=== PATIENT | female | born 1945 | race Caucasian/White ===

== ENCOUNTER 2017-05-18 01:37 | Emergency (ER) | payer MEDICARE, OTHER ==
[2017-05-18] MEDS ORDERED: NALOXONE HCL INJ 0.4 MG/ML VIAL IV ONE ×2 (01:53→03:03)
[2017-05-18] MEDS ORDERED: MAGNESIUM CITRATE 300 ML BTTL PO ONE (01:53)
[2017-05-18 05:18] VITALS: BP 157/76; TEMP 98.5; O2SAT 96
[2017-05-18] MEDS ORDERED: SODIUM PHOS/BIPHOS ENEMA ADULT 133 ML BTTL PR ONE (05:21)
--- NOTE | 2017-05-18 06:18 | ED.PDOC ---
History of Present Illness - General Chief Complaint: Abdominal Pain Stated Complaint: Constipation and Hemorrhoids Time Seen by Provider: 05/18/17 06:08 Source: patient Exam Limitations: no limitations - History of Present Illness Initial Comments: Patient presents with constipation for one week. She has mild abdominal fullness. She is taking narcotics for a foot surgery she had over a week ago. She has not had this problem before. She does have hemorrhoids which has made her attempts at having a bowel movement more difficult. No N/V. Good appetite. No other complaints. Timing/Duration: 1 week Severity: moderate Improving Factors: nothing Worsening Factors: nothing Associated Symptoms: denies symptoms Allergies/Adverse Reactions: Allergies Morphine Allergy (Verified 07/31/15 11:22) Sulfa Antibiotics Allergy (Verified 07/31/15 11:22) Home Medications: Ambulatory Orders Albuterol Sulfate Nebs [Proventil Nebs] 2.5 mg INH PRN 07/31/15 Amlodipine Besylate [Norvasc] 2.5 mg PO DAILY 07/31/15 Ascorbic Acid [Vitamin C] 500 mg PO DAILY 07/31/15 Aspirin [Coated Aspirin] 325 mg PO DAILY 07/31/15 Calcium Citrate-Vitamin D [Calcium Citrate + D 315-200 mg-Unit] 1 tab PO BID 02/09 Ferrous Sulfate [Fe Tabs] 325 mg PO BID 07/31/15 Fluticasone Propionate Hfa [Flovent Hfa] 220 mcg IN TID 07/31/15 Fluticasone Propionate [Cutivate] 2 spray EX DAILY 07/31/15 Fluticasone/Salmeterol 250/50 [Advair Diskus] 1 puff INH BID 07/31/15 HYDROcodone 7.5MG/APAP 325MG [[place] 7.5/325] 1 tab PO Q4-6H PRN 07/31/15 Levalbuterol Tartrate [Xopenex Hfa] 45 mcg IN Q6H 07/31/15 Losartan Potassium & Hydrochlo [Losartan Potassium/Hydroc 100-25 mg] 1 tab PO DAILY 07/31/15 Methocarbamol [Robaxin] 500 mg PO Q8H 07/31/15 Montelukast [Singulair] 10 mg PO DAILY 07/31/15 Multiple Vitamins W/ Minerals [Womens 50+ Multi Vitamin] 1 tab PO DAILY Simvastatin [Zocor] 20 mg PO DAILY 07/31/15 Tiotropium [place] Monohydrate [Spiriva Handihaler] 1 puff IN DAILY 07/31/15 Tramadol HCl [Ultram] 50 mg PO DAILY 07/31/15 Docusate Sodium 100 mg PO BID #30 cap 05/18/17 Polyethylene Glycol 3350 [Miralax] 17 gm PO QDAC #20 pckt 05/18/17 Review of Systems - Review of Systems Constitutional: States: no symptoms reported EENTM: States: no symptoms reported Respiratory: States: no symptoms reported Cardiology: States: no symptoms reported Gastrointestinal/Abdominal: States: see HPI Genitourinary: States: no symptoms reported Musculoskeletal: States: no symptoms reported Skin: States: no symptoms reported Neurological: States: no symptoms reported Endocrine: States: no symptoms reported Hematologic/Lymphatic: States: no symptoms reported Past Medical History (General) - Patient Medical History Hx Congestive Heart Failure: No Hx Diabetes: No - Social History Hx Tobacco Use: No Hx Alcohol Use: No Hx Substance Use: No Hx Substance Use Treatment: No Hx Depression: No Family Medical History - Family History Mother Family History: Unknown Physical Exam - Physical Exam General Appearance: Alert Respiratory: lungs clear Cardiovascular/Chest: regular rate, rhythm Gastrointestinal/Abdominal: normal bowel sounds, non tender, soft Skin Exam: normal color Progress - Progress Progress: 05/18/17 06:19 Magnesium citrate tried along with two amps of oral Narcan. A minimal amount of stool was removed digitally. She did not have a full bm. She also recieved a fleet enema with a small amount removed digitally. She was given an RX for docusate and miralax and orders to follow up with her pcp this morning. Departure - Departure Clinical Impression: Constipation Disposition: Discharge to Home or Self Care Condition: Good Departure Forms: ED Discharge - Pt. Copy, Patient Portal Self Enrollment Instructions: DI for Abdominal Pain-Adult Diet: other - liquid and soft diet Activity: increase activity as tolerated Referrals: Remi Olvera MD [Primary Care Provider] - 1-2 Weeks Prescriptions: Docusate Sodium 100 mg PO BID #30 cap Polyethylene Glycol 3350 [Miralax] 17 gm PO QDAC #20 pckt Home Medications: Ambulatory Orders Albuterol Sulfate Nebs [Proventil Nebs] 2.5 mg INH PRN 07/31/15 Amlodipine Besylate [Norvasc] 2.5 mg PO DAILY 07/31/15 Ascorbic Acid [Vitamin C] 500 mg PO DAILY 07/31/15 Aspirin [Coated Aspirin] 325 mg PO DAILY 07/31/15 Calcium Citrate-Vitamin D [Calcium Citrate + D 315-200 mg-Unit] 1 tab PO BID 02/09 Ferrous Sulfate [Fe Tabs] 325 mg PO BID 07/31/15 Fluticasone Propionate Hfa [Flovent Hfa] 220 mcg IN TID 07/31/15 Fluticasone Propionate [Cutivate] 2 spray EX DAILY 07/31/15 Fluticasone/Salmeterol 250/50 [Advair Diskus] 1 puff INH BID 07/31/15 HYDROcodone 7.5MG/APAP 325MG [[place] 7.5/325] 1 tab PO Q4-6H PRN 07/31/15 Levalbuterol Tartrate [Xopenex Hfa] 45 mcg IN Q6H 07/31/15 Losartan Potassium & Hydrochlo [Losartan Potassium/Hydroc 100-25 mg] 1 tab PO DAILY 07/31/15 Methocarbamol [Robaxin] 500 mg PO Q8H 07/31/15 Montelukast [Singulair] 10 mg PO DAILY 07/31/15 Multiple Vitamins W/ Minerals [Womens 50+ Multi Vitamin] 1 tab PO DAILY Simvastatin [Zocor] 20 mg PO DAILY 07/31/15 Tiotropium [place] Monohydrate [Spiriva Handihaler] 1 puff IN DAILY 07/31/15 Tramadol HCl [Ultram] 50 mg PO DAILY 07/31/15 Docusate Sodium 100 mg PO BID #30 cap 05/18/17 Polyethylene Glycol 3350 [Miralax] 17 gm PO QDAC #20 pckt 05/18/17 Additional Instructions: Take medications as prescribed. Follow up with your primary doctor this morning for further instruction or referral.
== END 2017-05-18 06:48 | disposition home or self-care (01) ==
LOC: ER 01:37
DX: K59.00 Constipation, unspecified (principal); Z88.6 Allergy status to analgesic agent; Z88.2 Allergy status to sulfonamides; Z79.82 Long term (current) use of aspirin
CPT/HCPCS: J2310 ×2

== ENCOUNTER → 2017-09-08 | Outpatient (CLI) | payer OTHER ==
--- NOTE | 2017-09-09 13:38 | MAM ---
EXAM DESCRIPTION: Screening Mammogram,Bilateral: Digital mammography. CLINICAL HISTORY: 72 years Female SCREENING . No complaints. Mother with breast cancer. Postmenopausal. (Hysterectomy). HRT five or more years ago.. COMPARISON: 2-D digital screening studies bilateral 07/19/2016 and 07/17/2015.. Report from prior examination also reviewed. TECHNIQUE: Bilateral CC and MLO projection full-field images, 2-D digital screening mammographic technique. CAD was utilized. FINDINGS: The breast parenchymal density pattern is: Heterogeneously dense breast tissue, which may obscure small masses. No skin thickening or nipple retraction bilateral vascular calcifications. Bilateral intramammary lymph nodes. No focal, stellate mass or density, focal asymmetry , and no suspicious microcalcifications bilaterally. Stable mammograms compared to the prior study, taking into account differences in mammographic technique. IMPRESSION: BI-RADS CATEGORY: 2 - BENIGN FINDINGS. FOLLOW UP: Routine digital bilateral screening, one year interval from August 2017. Written communication explaining the IMPRESSION and follow-up, will be mailed to the patient and referring health care provider. According to the [employer], yearly mammograms are recommended starting at age 40 and continuing as long as a woman is in good health. Any breast change noted on a breast self-exam should be reported promptly to the patient's healthcare provider. Breast MRI is recommended for women with an approximately 20-25% or greater lifetime risk of breast cancer, including women with a strong family history of breast or ovarian cancer and women who have been treated for Hodgkin's disease. A negative mammographic report should not delay tissue diagnosis in patients with significant clinical history or physical findings. Extremely dense breast tissue limits the sensitivity of digital mammography. Electronically signed by: Andres Diaz MD 09/09/2017 1:37 PM CDT
== END ==
LOC: MAMMO 13:36
PROVIDERS: ATTEND Obstetrics & Gynecology
DX: Z12.31 Encounter for screening mammogram for malignant neoplasm of breast (principal)

== ENCOUNTER → 2018-09-21 | Outpatient (CLI) | payer OTHER ==
--- NOTE | 2018-09-25 08:57 | MAM ---
EXAM DESCRIPTION: 3D Screening BILATERAL : Digital Mammography. CLINICAL HISTORY: 73 years Female SCREEN . No complaints or personal history of breast cancer. Mother and remote family history with breast cancer. Childbirth. Postmenopausal 24 years. HRT 5 or more years ago. Lifetime risk of developing breast cancer (Tyrer-Cuzick model)(%): 7.7. COMPARISON: 2-D digital screening bilateral mammography 09/08/2017. No prior reports available. TECHNIQUE: Bilateral CC and MLO projection full-field images, Digital tomosynthesis mammographic technique. Bilateral digital 2-D full-field MLO images. CAD not utilized. FINDINGS: The breast parenchymal density pattern is: Heterogeneously dense breast tissue, which may obscure small masses. No skin thickening or nipple retraction. Bilateral solitary microcalcifications. Bilateral coarse and vascular calcifications. Stable radiolucent region in the lateral superior left breast anterior third is most likely mostly fatty tissue or lipomas. No new focal, stellate mass or density, focal asymmetry , and no suspicious microcalcifications bilaterally. Stable mammograms compared to prior study. Taking into account, differences in mammographic technique. IMPRESSION: Benign exam. BIRAD CATEGORY: 2 BENIGN FINDINGS. RECOMMENDATIONS: FOLLOW UP: Return to routine digital bilateral screening, one year interval from August 2018 Written communication explaining the IMPRESSION and follow-up, will be mailed to the patient and referring health care provider. According to the [employer], yearly mammograms are recommended starting at age 40 and continuing as long as a woman is in good health. Any breast change noted on a breast self-exam should be reported promptly to the patient's healthcare provider. Breast MRI is recommended for women with an approximately 20-25% or greater lifetime risk of breast cancer, including women with a strong family history of breast or ovarian cancer and women who have been treated for Hodgkin's disease. A negative mammographic report should not delay tissue diagnosis in patients with significant clinical history or physical findings. Extremely dense breast tissue limits the sensitivity of digital mammography. Electronically signed by: Andres Diaz MD 09/25/2018 8:55 AM CDT
== END ==
LOC: MAMMO 13:30
PROVIDERS: ATTEND Obstetrics & Gynecology
DX: Z12.31 Encounter for screening mammogram for malignant neoplasm of breast (principal)

== ENCOUNTER → 2019-10-18 | Outpatient (CLI) | payer OTHER ==
--- NOTE | 2019-10-22 11:43 | MAM ---
EXAM DESCRIPTION: 3D Screening BILATERAL : Digital Mammography. CLINICAL HISTORY: 74 years Female ANNUAL SCREENING . No complaints. No personal history of breast cancer. Mother with breast cancer at age 65. Remote family history of breast cancer. Menarche age 11. Childbirth age 19. Hysterectomy age 49. Hormone replacement 5 or more years ago. Lifetime risk of developing breast cancer (Tyrer-Cuzick model)(%): 7.2. COMPARISON: Bilateral screening digital breast tomosynthesis 21 September 2018. 2-D digital screening bilateral mammography 08 September 2017.. TECHNIQUE: Bilateral CC and MLO projection full-field images, digital tomosynthesis mammographic technique. Bilateral digital 2-D full-field MLO images. CAD not available for tomosynthesis or 2-D images. FINDINGS: The breast parenchymal density pattern is: Heterogeneously dense breast tissue, which may obscure small masses. No skin thickening or nipple retraction. Bilateral vascular calcifications. Bilateral solitary microcalcifications. No new focal, stellate mass or density, focal asymmetry , and no suspicious microcalcifications bilaterally. Stable mammograms compared to prior study. Taking into account, differences in mammographic technique. IMPRESSION: Benign exam. BIRAD CATEGORY: 2 BENIGN FINDINGS. RECOMMENDATIONS: FOLLOW UP: Routine digital bilateral mammographic screening, one year interval from September 2019. Written communication explaining the IMPRESSION and follow-up, will be mailed to the patient and referring health care provider. According to the [employer], yearly mammograms are recommended starting at age 40 and continuing as long as a woman is in good health. Any breast change noted on a breast self-exam should be reported promptly to the patient's healthcare provider. Breast MRI is recommended for women with an approximately 20-25% or greater lifetime risk of breast cancer, including women with a strong family history of breast or ovarian cancer and women who have been treated for Hodgkin's disease. A negative mammographic report should not delay tissue diagnosis in patients with significant clinical history or physical findings. Extremely dense breast tissue limits the sensitivity of digital mammography. Electronically signed by: Andres Diaz MD 10/22/2019 11:42 AM [employer]
== END ==
LOC: MAMMO 15:45
PROVIDERS: ATTEND Obstetrics & Gynecology
DX: Z12.31 Encounter for screening mammogram for malignant neoplasm of breast (principal)

== ENCOUNTER → 2020-11-13 | Outpatient (CLI) | payer OTHER ==
--- NOTE | 2020-11-17 10:20 | MAM ---
EXAM DESCRIPTION: 3D Screening BILATERAL : Digital Mammography. CLINICAL HISTORY: 75 years Female SCREENING history sheet. Lifetime risk of developing breast cancer (Tyrer-Cuzick model)(%): Not calculated COMPARISON: Bilateral screening digital breast tomosynthesis September 2019 and August 2018 TECHNIQUE: Bilateral CC and MLO projection full-field images, digital tomosynthesis mammographic technique. Bilateral digital 2-D full-field MLO images. CAD available for 2-D images. FINDINGS: The breast parenchymal density pattern is: Heterogeneously dense breast tissue, which may obscure small masses. Vascular calcifications. Solitary microcalcifications. Intramammary lymph nodes. Bilateral groups of small calcifications are stable.. No skin thickening or nipple retraction No new focal, stellate mass or density, focal asymmetry , and no suspicious microcalcifications bilaterally. Stable mammograms compared to prior study. IMPRESSION: Benign exam. BIRAD CATEGORY: 2 BENIGN FINDINGS. RECOMMENDATIONS: FOLLOW UP: Routine digital bilateral mammographic screening, one year interval from October 2020. Written communication explaining the IMPRESSION and follow-up, will be mailed to the patient and referring health care provider. According to the [employer], yearly mammograms are recommended starting at age 40 and continuing as long as a woman is in good health. Any breast change noted on a breast self-exam should be reported promptly to the patient's healthcare provider. Breast MRI is recommended for women with an approximately 20-25% or greater lifetime risk of breast cancer, including women with a strong family history of breast or ovarian cancer and women who have been treated for Hodgkin's disease. A negative mammographic report should not delay tissue diagnosis in patients with significant clinical history or physical findings. Extremely dense breast tissue limits the sensitivity of digital mammography. Electronically signed by: Andres Diaz MD 11/17/2020 10:19 AM [facility]
== END ==
LOC: MAMMO 15:51
PROVIDERS: ATTEND Obstetrics & Gynecology
DX: Z12.31 Encounter for screening mammogram for malignant neoplasm of breast (principal)